=== PATIENT | female | born 1960 | race Caucasian/White ===

== ENCOUNTER → 2021-01-19 | Outpatient (CLI) | payer BC ==
[~2021-01-19] MED LIST: DULO30 PO; Dazidox10 MG; ESCI10; ESTR1; FAMO20 PO; HYDACE5 PO; MOTION RELIEF25 MG PO; NAPR500EC PO; OXYCODONE; PROG100; PROGESTERONE CREAM; TRAM50 PO; TRIHYD5075; TRIHYD5075 PO; VITAMIN E400 UNIT PO
== END ==
LOC: LAB SHORT 11:41 → LAB 11:41
DX: D48.5 Neoplasm of uncertain behavior of skin (principal); D04.71 Carcinoma in situ of skin of right lower limb, including hip
CPT/HCPCS: 88305

== ENCOUNTER 2021-06-15 07:58 | Day surgery (SDC) | payer BC ==
[~2021-06-15] VITALS: Ht 170.2 cm; Wt 162.2 kg
[2021-06-15] MEDS ORDERED: OXYC10ER PO (08:51)
== END 2021-06-15 11:46 | disposition home or self-care (01) ==
LOC: ORSCSDS 07:58
PROVIDERS: Orthopaedic Surgery
PROC: 0LQ24ZZ Repair Left Shoulder Tendon, Percutaneous Endoscopic Approach (ICD-10-PCS; principal; 2021-06-15 09:30)
PROC: 0LS44ZZ Reposition Left Upper Arm Tendon, Percutaneous Endoscopic Approach (ICD-10-PCS; principal; 2021-06-15 09:30)
PROC: 0RNK4ZZ Release Left Shoulder Joint, Percutaneous Endoscopic Approach (ICD-10-PCS; principal; 2021-06-15 09:30)
DX: M75.112 Incomplete rotator cuff tear or rupture of left shoulder, not specified as traumatic (principal); M75.22 Bicipital tendinitis, left shoulder; M75.42 Impingement syndrome of left shoulder
CPT/HCPCS: A9270; C1713; J0171; J0690; J1100; J2250; J2405; J2704; J3010; J7120

== ENCOUNTER 2023-06-29 06:40 | Day surgery (SDC) | payer BC ==
[2023-06-29] VITALS (16 sets, daily range): BP systolic 93–118; BP diastolic 59–73
[~2023-06-29] VITALS: Ht 167.6 cm; Wt 73.8 kg
[~2023-06-29 06:40] MED LIST changes: +Lactated Ringer's 1,000 ML IV SCH; +OXYC10ER PO
[2023-06-29] MEDS ORDERED: PROG100 PO (06:53)
[2023-06-29] MEDS ORDERED: Acerola C500 MG PO (06:54)
[2023-06-29] MEDS ORDERED: VITAMIN B121000 MCG PO (06:54)
[2023-06-29] MEDS ORDERED: VITAMIN D325 MC3 (06:55)
[2023-06-29] MEDS ORDERED: FentaNYL Citrate 50 MCG/ML 5 ML Injection ONE (07:22)
[2023-06-29] MEDS ORDERED: propofoL 20 ML IV ONE (07:23)
[2023-06-29] MEDS ORDERED: Ondansetron HCl 2 MG / ML 2ML Vial ONE (07:24)
[2023-06-29] MEDS ORDERED: Dexamethasone Sod Phos 10 MG/ML 1ML VIAL ONE (07:24)
[2023-06-29] MEDS ORDERED: Ketorolac Tromethamine 30mg Vial ONE (07:24)
[2023-06-29] MEDS ORDERED: Estradiol Vag Cream 0.1 MG/G 42.5 GM Tube VAG ONE (08:11)
[2023-06-29] MEDS ORDERED: Lidocaine 1%-Epineph 1:100000 20 ML MDV INJ ONE (08:35)
[2023-06-29] MEDS ORDERED: HYDROcodone 10-APAP 325 TAB PO PRN (09:20)
[2023-06-29] MEDS ORDERED: Acetaminophen 325 MG TABLET PO PRN (09:20)
[2023-06-29] MEDS ORDERED: Ibuprofen 400 MG Tab PO PRN (09:20)
[2023-06-29] MEDS ORDERED: Ondansetron HCl 2 MG / ML 2ML Vial IV PRN (09:20)
[2023-06-29] MEDS ORDERED: FLU VACC QS2023-24(6MOS UP)/PF 60 MCG/0.5 ML SYRINGE IM SCH (09:25)
[2023-06-29] MEDS ORDERED: FentaNYL Citrate 50 MCG/ML 2 ML Injection IV PRN (09:25)
[2023-06-29] MEDS ORDERED: FentaNYL Citrate 50 MCG/ML 2 ML Injection ONE (09:30)
--- NOTE | 2023-06-29 10:03 | NUR ---
ARRIVAL TO UNIT PT ARRIVED TO UNIT FROM PACU. ANGELA PAD IN PLACE CDI, NO DRAINAGE. VAGINAL PACKING VISUALIZED. PT REPORTS PAIN TOLERABLE AT 3/10. FEELS TIRED AT THIS TIME. CURRENTLY RESTING IN BED, CALL LIGHT IN REACH. NO FURTHER NEEDS AT THIS TIME. PT WILL CALL WHEN SHE FEELS THE URGE TO VOID.
[2023-06-29] MEDS ORDERED: Ketorolac Tromethamine 30mg Vial IV SCH (12:00)
[2023-06-29 12:16] LABS: BASOPHILS ABSOLUTE AUTO 0.03 K/mm3 (0.00-0.23); BASOPHILS PERCENT AUTO 0 % (0-2); EOSINOPHILS ABSOLUTE AUTO 0.05 K/mm3 (0.00-0.68); EOSINOPHILS PERCENT AUTO 1 % (0-6); Hematocrit 33.3 % (33.0-51.0); Hemoglobin 11.7 g/dL (11.5-16.0); IMMATURE GRAN ABSOLUTE AUTO 0.03 K/mm3 (0.00-0.10); IMMATURE GRAN PERCENT AUTO 0 % (0-1); LYMPHOCYTES ABSOLUTE AUTO 0.54 K/mm3 (0.84-5.20); LYMPHOCYTES PERCENT AUTO 8 % (21-46); MONOCYTES ABSOLUTE AUTO 0.07 K/mm3 (0.16-1.47); MONOCYTES PERCENT AUTO 1 % (4-13); Mean Corpuscular HGB 31.5 pg (26.0-34.0); Mean Corpuscular HGB Conc 35.1 g/dL (31.5-36.5); Mean Corpuscular Volume 90 fL (80-100); Mean Platelet Volume 10.7 fL (9.1-12.4); NEUTROPHILS ABSOLUTE AUTO 6.37 K/mm3 (1.96-9.15); NEUTROPHILS PERCENT AUTO 90 % (41-73); Platelet Count 188 K/mm3 (150-400); RDW Coefficient Variation 11.6 % (11.7-14.2); RDW Standard Deviation 37.7 fL (35.1-46.3); Red Blood Cell Count 3.71 M/mm3 (3.80-5.20); White Blood Cell Count 7.09 K/mm3 (4.00-11.30)
--- NOTE | 2023-06-29 13:32 | NUR ---
pt had moderate sanguinous drainage on ammon pad when checked at this time. new pad placed. patient has ambulated to restroom twice. no weakness with ambulation, pain well controlled per emar. will discharge once drainage has slowed down.
--- NOTE | 2023-06-29 13:48 | NUR ---
SPOKE WITH DR. PETERS REGARDING BLEEDING. PACKING TO REMAIN IN AND CONTINUE TO MONITOR BLEEDING WITH CLEAN ANGELA PAD. WILL CALL DR. PETERS BACK IF IT CONTINUES.
--- NOTE | 2023-06-29 14:48 | NUR ---
pt ambulated to restroom 1/2 dollar size spot of sanguinous drainage on ammon pad. darker in color than previous change. new pad placed.
--- NOTE | 2023-06-29 15:56 | NUR ---
changed ammon pad at this time. 1/2 dollar size sanguinous drainage on previous pad. spoke with dr. carney. orders to leave packing in place and patient will stay the night. pt agreeable to plan.
--- NOTE | 2023-06-29 21:30 | NUR ---
DR CONSULT CALL MADE TO DR PETERS REGARDING PT VAGINAL PACKING. BOTTOM OF PT's PACKING TOUCHED THE HAT WHEN URINATING. APPROX 6 INCHES OF PACKING WAS CUT. THIS RN ASKED DR PETERS IF SHE WOULD LIKE THE PACKING TO BE COMPLETELY REMOVED. STATES IT IS NOT NECESSARY AT THIS TIME. WILL CONTINUE TO MONITOR PACKING. ANGELA PAD DRAINAGE AMOUNT NOTED NOT TO BE INCREASING AT THIS TIME. PAD IS NOT SATUATING TO EDGES BETWEEN CHANGES.
[2023-06-29] MEDS ORDERED: Ketorolac Tromethamine 30mg Vial IV PRN (22:00)
--- NOTE | 2023-06-30 04:47 | NUR ---
SHIFT SUMMARY POD 1 ANTERIOR REPAIR. NO ACUTE CHANGES OVERNIGHT. VS WNL FOR PT. TOLERATING ORALS. AMBULATES/TOILETS INDEPENDENTLY. SANGUINEOUS DRAINAGE IN URINE AND ON ANGELA PADS. PADS SATURATED MODERATE AMOUNT, NOT TO EXTEND TO THE EDGE OF THE PAD, CHANGED 2X THIS SHIFT. VAGINAL PACKING IN PLACE. NO BM OVERNIGHT. PT REPORTS PAIN TOLERABLE, MEDICATED PER EMAR. ANTICIPATED DISCHARGE AFTER PACKING IS REMOVED LATER TODAY. CALL LIGHT WITHIN REACH, BED IN LOWEST POSITION, WILL REPORT TO DAY RN.
[2023-06-30 05:08] VITALS: BP 108/69
[2023-06-30 07:26] VITALS: BP 124/79
--- NOTE | 2023-06-30 10:08 | NUR ---
DR. PETERS IN ROOM AT ABOUT 0940
--- NOTE | 2023-06-30 15:18 | NUR ---
DISCHARGE:PT HAVING MINIMAL VAGINAL BLEED SINCE PACKING REMOVED BY DR. PETERS. DC PACKET PRINTED AND PT EDUCATED. PT DENIED NEED FOR WHEELCHAIR, LEFT UNIT ON FOOT AT 1330
== END 2023-06-30 14:24 | disposition home or self-care (01) ==
LOC: ORSCMMR 06:40 → ORD 08:00 → SURS 09:41 → ORSCMMR 06-30 14:24
PROVIDERS: Obstetrics & Gynecology
PROC: 0JQC0ZZ Repair Pelvic Region Subcutaneous Tissue and Fascia, Open Approach (ICD-10-PCS; principal; 2023-06-29 08:00)
DX: N81.11 Cystocele, midline (principal); Z79.899 Other long term (current) drug therapy
CPT/HCPCS: 36415; 85025; 94762; A9270; J1100; J1885; J2405; J2704; J3010; J7120